=== PATIENT | male | born 1990 | race Caucasian/White ===

== ENCOUNTER 2017-05-21 17:27 | Emergency (ER) | payer OTHER ==
[~2017-05-21] VITALS: Ht 188 cm; Wt 99.8 kg
[2017-05-21 17:34] VITALS: BP_SYST 149
--- NOTE | 2017-05-21 17:39 | NUR ---
Pt placed to ER bed 05, report given to ERIN Gtz.
--- NOTE | 2017-05-21 17:45 | NUR ---
PATIENT TO ER BED 5.PER PATIENT HE STARTED COUGHING AND HAVING RUNNY NOSE YESTERDAY.NOTED WITH EPISODES OF NONPRODUCTIVE COUGH; RUNNY NOSE;AFEBRILE;MILD HEADACHE.BILATERAL LUNGS CLEAR.NO OTHER COMPLAIN/INJURY PER PATIENT OR NOTED
--- NOTE | 2017-05-21 17:54 | NUR ---
ER at bedside examining patient.
--- NOTE | 2017-05-21 18:17 | NUR ---
Patient given written and verbal discharge instructions and verbalizes understanding. ER MD discussed with patient the results and treatment provided. Patient in stable condition. ID arm band removed. IV catheter removed intact and dressing applied, no active bleeding. Rx of Cipro,Tylenol ES,Zofran given. Patient educated on pain management and to follow up with PMD. Pain Scale 1/10. Opportunity for questions provided and answered.
--- NOTE | 2017-05-21 18:29 | NUR ---
Patient given written and verbal discharge instructions and verbalizes understanding. ER MD discussed with patient the results and treatment provided. Patient in stable condition. ID arm band removed. Rx of Fluticasone nasal spray,Medrol dosepak,Tessalon capsule and Claritin given. Patient educated on pain management and to follow up with PMD. Pain Scale0/10 . Opportunity for questions provided and answered.
[2017-05-21 18:30] VITALS: BP_SYST 126
== END 2017-05-21 18:20 | disposition home or self-care (01) ==
LOC: SED 17:27
DX: J06.9 Acute upper respiratory infection, unspecified (principal); R03.0 Elevated blood-pressure reading, without diagnosis of hypertension
CPT/HCPCS: 99283

== ENCOUNTER 2017-07-09 13:06 | Emergency (ER) | payer OTHER ==
[~2017-07-09] VITALS: Ht 188 cm; Wt 104.3 kg
[2017-07-09 13:07] VITALS: BP_SYST 147
[2017-07-09 14:30] LABS: BILIRUBIN,URINE NEGATIVE (NEGATIVE); CLARITY/URINE CLEAR (CLEAR); COLOR,URINE YELLOW (YELLOW); GLUCOSE,URINE NEGATIVE (NEGATIVE); KETONES,URINE NEGATIVE (NEGATIVE); LEUKOCYTE ESTERASE ,URINE NEGATIVE (NEGATIVE); NITRITE, URINE NEGATIVE (NEGATIVE); PH,URINE 5.5 (5.0-8.0); PROTEIN URINE NEGATIVE (NEGATIVE); UROBILINOGEN,URINE 0.2 (0.2-1.0)
[2017-07-09 14:31] LABS: BLOOD, URINE TRACE (NEGATIVE)
[2017-07-09 14:35] LABS: BACTERIA,URINE RARE /HPF (None Seen); MUCUS,URINE 1+ /LPF (None Seen); WBC,URINE 0-3 /HPF (0-3)
[2017-07-09 14:39] LABS: CANNABINOID, URINE POSITIVE (NEG <=50)
[2017-07-09 14:40] LABS: BARBITURATE, URINE NEGATIVE (NEG <=200); BENZODIAZEPINE, URINE NEGATIVE (NEG <=150); COCAINE, URINE NEGATIVE (NEG <=150); METHAMPHETAMINES SCREEN,URINE NEGATIVE (NEG <=500); OPIATE, URINE NEGATIVE (NEG <=100); PHENCYCLIDINE SCREEN,URINE NEGATIVE (NEG <=25); UR TRICYCLIC ANTIDEPRESSANTS NEGATIVE (NEG <=300); URINE AMPHETAMINE NEGATIVE (NEG <=500); URINE METHADONE NEGATIVE (NEG <=200); URINE OXYCODONE SCREEN NEGATIVE (NEG <=100); URINE PROPOXYPHENE SCREEN NEGATIVE (NEG <=300)
[2017-07-09 15:15] VITALS: BP_SYST 149
== END 2017-07-09 15:15 | disposition home or self-care (01) ==
LOC: SED 13:06
DX: S63.502A Unspecified sprain of left wrist, initial encounter (principal); S63.601A Unspecified sprain of right thumb, initial encounter; S80.02XA Contusion of left knee, initial encounter; F10.10 Alcohol abuse, uncomplicated; F12.10 Cannabis abuse, uncomplicated; R03.0 Elevated blood-pressure reading, without diagnosis of hypertension; V00.131A Fall from skateboard, initial encounter; Y93.51 Activity, roller skating (inline) and skateboarding; Y92.89 Other specified places as the place of occurrence of the external cause; Y99.8 Other external cause status
CPT/HCPCS: 29125; 36415; 73110; 73130; 73564; 80307; 81000; 99285; G0482

== ENCOUNTER 2018-08-29 20:17 | Emergency (ER) | payer MEDICAID, OTHER ==
[~2018-08-29] VITALS: Ht 188 cm; Wt 108.9 kg
[2018-08-29 20:22] VITALS: BP_SYST 158
--- NOTE | 2018-08-29 20:24 | NUR ---
Pt c/o generalized weakness with N/V x 1 day. Pt has hx of consuming large amounts of ETOH.
--- NOTE | 2018-08-29 20:24 | NUR ---
Patient to ER bed 06 to gown for evaluation. Side rails up.
--- NOTE | 2018-08-29 20:30 | NUR ---
Dr. Victor at bedside.
[2018-08-29 20:58] VITALS: BP_SYST 128
--- NOTE | 2018-08-29 20:58 | NUR ---
Patient given written and verbal discharge instructions and verbalizes understanding. ER MD discussed with patient the results and treatment provided. Patient in stable condition. ID arm band removed. Rx of Zofran given. Patient educated on pain management and to follow up with PMD. Pain Scale 1/10. Opportunity for questions provided and answered. Medication side effect fact sheet provided.
== END 2018-08-29 20:58 | disposition home or self-care (01) ==
LOC: SED 20:17
DX: F10.10 Alcohol abuse, uncomplicated (principal); R03.0 Elevated blood-pressure reading, without diagnosis of hypertension
CPT/HCPCS: 99283

== ENCOUNTER 2018-12-08 07:12 | Emergency (ER) | payer MEDICAID ==
[~2018-12-08] VITALS: Ht 190.5 cm; Wt 113.4 kg
[2018-12-08 07:12] VITALS: BP_SYST 132
[2018-12-08] MEDS ORDERED: LIDOCAINE 1% 10 MG/ML, 20 ML MDV INJ ONE (08:45)
[2018-12-08] MEDS ORDERED: BACITRACIN 1 GM OINT TP ONE (09:15)
[2018-12-08 09:20] VITALS: BP_SYST 132
== END 2018-12-08 09:25 | disposition home or self-care (01) ==
LOC: SED 07:12
DX: S61.411A Laceration without foreign body of right hand, initial encounter (principal); W26.8XXA Contact with other sharp object(s), not elsewhere classified, initial encounter; Y93.89 Activity, other specified; Y92.89 Other specified places as the place of occurrence of the external cause; Y99.8 Other external cause status
CPT/HCPCS: 99283

== ENCOUNTER 2018-12-09 15:43 | Emergency (ER) | payer MEDICAID ==
[2018-12-09 15:50] VITALS: BP_SYST 142
[2018-12-09 16:30] VITALS: BP_SYST 130
== END 2018-12-09 16:30 | disposition home or self-care (01) ==
LOC: SED 15:43
DX: S61.411D Laceration without foreign body of right hand, subsequent encounter (principal); W26.8XXD Contact with other sharp object(s), not elsewhere classified, subsequent encounter
CPT/HCPCS: 99283

== ENCOUNTER 2018-12-17 11:53 | Emergency (ER) | payer MEDICAID ==
[~2018-12-17] VITALS: Ht 188 cm; Wt 113.4 kg
[2018-12-17 12:14] VITALS: BP_SYST 145
--- NOTE | 2018-12-17 14:00 | NUR ---
Patient told admitting that he was leaving without being seen
== END 2018-12-17 14:00 | disposition left against medical advice (07) ==
LOC: SED 11:53
DX: S61.411D Laceration without foreign body of right hand, subsequent encounter (principal); Z53.21 Procedure and treatment not carried out due to patient leaving prior to being seen by health care provider; W26.8XXD Contact with other sharp object(s), not elsewhere classified, subsequent encounter

== ENCOUNTER 2018-12-19 09:36 | Emergency (ER) | payer MEDICAID ==
[~2018-12-19] VITALS: Ht 188 cm; Wt 113.4 kg
[2018-12-19 09:43] VITALS: BP_SYST 136
--- NOTE | 2018-12-19 09:43 | NUR ---
Patient triaged and placed in waiting room. VSS and patient appears in no acute distress at this time. Accompanied by SON, awaiting available bed, and MD notified of need for MSE.
--- NOTE | 2018-12-19 10:12 | NUR ---
BROUGHT BACK TO [facility] AND REPORT GIVEN TO SANDRA
--- NOTE | 2018-12-19 10:30 | NUR ---
PATIENT SITTING UP ON BED. AAOx4. RESPIRATIONS EVEN AND UNLABORED. NO SOB. PATIENT DENIES OF ANY PAIN. PATIENT IN NO ACUTE DISTRESS AND IN GOOD CONDITION. PT FOR REMOVAL OF SUTURES x3 ON RIGHT HAND, BETWEEN 2ND AND 3RD KNUCKLE. LACERATION NOTED WITH GOOD APPROXIMATION. SKIN INTACT. NO S/SX OF INFECTION NOTED. NO DRAINAGE. NO BLEEDING. MD AWARE OF PT CONDITION AND CHIEF COMPLAINT. WILL CONTINUE TO MONITOR.
--- NOTE | 2018-12-19 10:35 | NUR ---
ER Dr. MOMIN at bedside examining patient.
--- NOTE | 2018-12-19 10:40 | NUR ---
SUTURES ON RIGHT HAND REMOVED BY DR. MOMIN. TOLERATED WELL. PATIENT EDUCATED ON S/SX OF INFECTION AND INSTRUCTED TO SEEK MEDICAL ATTENTION BHAKTI IF PRESENT. PT VERBALIZED UNDERSTANDING.
[2018-12-19 10:50] VITALS: BP_SYST 136
--- NOTE | 2018-12-19 10:50 | NUR ---
Patient given written and verbal discharge instructions and verbalizes understanding. ER MD discussed with patient the results and treatment provided. Patient in stable condition. ID arm band removed. No Rx given. Patient educated on pain management and to follow up with PMD. Pain Scale 0/10. Opportunity for questions provided and answered. Medication side effect fact sheet provided. PATIENT IN GOOD CONDITION AND IN NO ACUTE DISTRESS. PATIENT NOTED WITH A STABLE GAIT.
== END 2018-12-19 10:50 | disposition home or self-care (01) ==
LOC: SED 09:36
DX: S61.411D Laceration without foreign body of right hand, subsequent encounter (principal); R03.0 Elevated blood-pressure reading, without diagnosis of hypertension; W26.8XXD Contact with other sharp object(s), not elsewhere classified, subsequent encounter
CPT/HCPCS: 99281

== ENCOUNTER 2020-12-14 22:54 | Emergency (ER) | payer MEDICAID ==
[~2020-12-14] VITALS: Ht 188 cm; Wt 117.9 kg
[2020-12-14 23:00] VITALS: BP_SYST 152
[2020-12-14] MEDS ORDERED: PENI250T2 PO (23:31)
[2020-12-14] MEDS ORDERED: NAPR-1172 PO (23:31)
[2020-12-14] MEDS ORDERED: KETOROLAC TROMETHAMINE 60 MG/2 ML VIAL IM ONE (23:45)
[2020-12-14 23:55] VITALS: BP_SYST 152
== END 2020-12-14 23:55 | disposition home or self-care (01) ==
LOC: SED 22:54
DX: K08.89 Other specified disorders of teeth and supporting structures (principal); Z79.899 Other long term (current) drug therapy
CPT/HCPCS: 96372; 99283; J1885